=== PATIENT | male | born 1980 | race American Indian/Alaskan Native ===

== ENCOUNTER 2017-11-28 19:28 | Emergency (ER) | payer SELFPAY ==
--- NOTE | 2017-11-28 19:43 | Emergency Department Report ---
HPI - General Time Seen by Provider: 11/28/17 19:33 - HPI HPI: Room 20 The patient is a 37-year-old male presenting with chief complaint cardiac arrest. EMS was called to scene of the patient's unresponsive. Last known well time was 07:00 this morning. EMS was called and arrived on scene at 18: [id number] the patient in V. fib. The patient was shocked 1 and entered asystole. EMS states the patient received multiple rounds of epi in addition to sodium bicarbonate on ACLS protocols were continued. EMS states they were unable to intubate a patient because his jaw was "clinched down." Upon arrival to the ED the patient's jaw was stiff during intubation and likely represents early rigor. Patient intubated by myself Location: Cardiovascular system Duration: [See above] Quality: Asystole Severity: Severe Modifying factors: [see above] Context: [see above] Mode of transportation: [not driving] ED Past Medical Hx - Past Medical History Previous Medical History?: No - Surgical History Past Surgical History?: No - Family History Family history: no significant - Social History Smoking Status: Unknown if ever smoked ED Review of Systems ROS: Stated complaint: CARDIAC ARREST Other details as noted in HPI Comment: Unobtainable due to pts medical conditions Physical Exam - Physical Exam Physical Exam: GENERAL: The patient is well-developed well-nourished male lying on stretcher receiving chest compressions by EMS and being bagged via BVM. [] HEENT: Normocephalic. Atraumatic. Pupils 6 mm and fixed. Difficulty opening jaw likely secondary to early rigor mortis NECK: Trachea midline CHEST/LUNGS: No spontaneous respirations HEART/CARDIOVASCULAR: No heart sounds. Asystole on the monitor ABDOMEN: There is no abdominal distention. SKIN:There is no diaphoresis. NEURO: GCS 3T MUSCULOSKELETAL: No evidence of acute injury ED Medical Decision Making - Differential Diagnosis cardiac arrest Critical care attestation.: If time is entered above; I have spent that time in minutes in the direct care of this critically ill patient, excluding procedure time. ED Disposition Clinical Impression: Cardiac arrest Disposition: DC-20 Is pt being admited?: No Does the pt Need Aspirin: No Condition: Poor Time of Disposition: 19:34 (patient )
[2017-11-28] MEDS ORDERED: ADRENALIN ONE (22:24)
[2017-11-28] MEDS ORDERED: SODIUM BICARBONATE IV ONE (22:24)
== END 2017-11-28 22:29 ==
LOC: ED 19:28
DX: I46.9 Cardiac arrest, cause unspecified (principal)
CPT/HCPCS: 31500; 99285; J0171